=== PATIENT | male | born 1945 | race Caucasian/White ===

== ENCOUNTER → 2016-05-15 | Outpatient (CLI) | payer MEDICARE ==
[~2016-05-15] MED LIST: READI CAT ONE
[2016-05-15 17:41] LABS: Basophils # (auto) 0 uL; Basophils % (auto) 0.4 % (0.0-2.0); Eosinophils # (auto) 0.7 uL; Eosinophils % (auto) 7.5 % (0.0-7.0); Hematocrit 40.4 % (41.0-53.0); Hemoglobin 12.8 g/dL (13.5-17.5); Lymphocytes # (auto) 2.3 uL; Lymphocytes % (auto) 24.2 % (10.0-50.0); Mean Corpuscular Hemoglobin 28.5 pg (28.0-32.0); Mean Corpuscular Hgb Conc. 31.8 g/dL (32.0-36.0); Mean Corpuscular Volume 89.8 fL (80.0-100.0); Mean Platelet Volume 8.4 fL (7.4-10.4); Monocytes # (auto) 0.5 uL; Monocytes % (auto) 5.3 % (0.0-12.0); Neutrophils # (auto) 5.8 uL; Neutrophils % (auto) 62.6 % (37.0-80.0); Platelet Count (auto) 362 10^3/uL (140-450); Red Cell Distribution Width 15.5 % (11.6-16.0); White Blood Cell 9.3 10^3/uL (4.4-10.8)
[2016-05-15 18:13] LABS: BUN/Creatinine Ratio 16.7; Bilirubin, Total 0.3 mg/dL (0.2-1.0); Potassium 4.2 mmol/L (3.5-5.1); Total Protein 7.6 g/dL (6.4-8.2)
== END | disposition home or self-care (01) ==
LOC: Rad HDHVI 12:17
PROVIDERS: ATTEND Internal Medicine Cardiovascular Disease
DX: K80.80 Other cholelithiasis without obstruction (principal); I10 Essential (primary) hypertension; E11.9 Type 2 diabetes mellitus without complications; D64.9 Anemia, unspecified; K44.9 Diaphragmatic hernia without obstruction or gangrene; K80.20 Calculus of gallbladder without cholecystitis without obstruction
CPT/HCPCS: 36415; 74176; 80053; 83036; 85025

== ENCOUNTER → 2016-08-28 | Outpatient (CLI) | payer MEDICARE ==
[2016-08-28 14:16] LABS: Albumin 4.1 g/dL (3.4-5.0); BUN/Creatinine Ratio 6.5; Bilirubin, Total 0.3 mg/dL (0.2-1.0); Calcium 9.7 mg/dL (8.5-10.1); Potassium 4.7 mmol/L (3.5-5.1); Total Protein 8.3 g/dL (6.4-8.2)
== END | disposition home or self-care (01) ==
LOC: LAB 10:10
PROVIDERS: ATTEND Internal Medicine Cardiovascular Disease
DX: I10 Essential (primary) hypertension (principal); E78.00 Pure hypercholesterolemia, unspecified; E11.9 Type 2 diabetes mellitus without complications; D51.9 Vitamin B12 deficiency anemia, unspecified
CPT/HCPCS: 36415; 80053; 80061; 82043; 82607; 83036

== ENCOUNTER → 2016-10-24 | Outpatient (CLI) | payer MEDICARE ==
[2016-10-24 12:59] LABS: Albumin 3.9 g/dL (3.4-5.0); BUN/Creatinine Ratio 12.8; Bilirubin, Total 0.3 mg/dL (0.2-1.0); Potassium 4.2 mmol/L (3.5-5.1); Total Protein 7.2 g/dL (6.4-8.2)
[2016-10-24 13:12] LABS: Urine Bilirubin Negative (Negative); Urine Blood Negative /uL (Negative); Urine Color Yellow (Yellow); Urine Glucose Normal (Normal); Urine Ketone Negative (Negative); Urine Nitrite Negative (Negative); Urine Urobilinogen Normal (Negative); Urine pH 5.5 (5.0-8.0)
== END | disposition home or self-care (01) ==
LOC: LAB 08:56
PROVIDERS: ATTEND Internal Medicine Cardiovascular Disease
DX: E78.00 Pure hypercholesterolemia, unspecified (principal); I10 Essential (primary) hypertension; E11.9 Type 2 diabetes mellitus without complications; N39.0 Urinary tract infection, site not specified
CPT/HCPCS: 36415; 80053; 80061; 81003; 83036

== ENCOUNTER → 2016-10-31 | Outpatient (CLI) | payer MEDICARE | END | disposition home or self-care (01) | LOC: LAB 12:27 | PROVIDERS: ATTEND Internal Medicine Cardiovascular Disease | DX: E11.9 Type 2 diabetes mellitus without complications (principal) ==

== ENCOUNTER → 2017-03-05 | Outpatient (CLI) | payer MEDICARE ==
[~2017-03-05] MED LIST changes: +GLIP10TA82 PO; +METF-370 PO; -READI CAT ONE; +ROSU20TA14 PO; +SITA100T7 PO
== END | disposition home or self-care (01) ==
LOC: Rad HDHVI 12:42
PROVIDERS: ATTEND Internal Medicine Cardiovascular Disease
DX: I70.0 Atherosclerosis of aorta (principal); I31.3 Pericardial effusion (noninflammatory); I08.0 Rheumatic disorders of both mitral and aortic valves; I49.8 Other specified cardiac arrhythmias
CPT/HCPCS: 93306

== ENCOUNTER 2017-07-04 17:12 | Inpatient (IN) | payer MEDICARE ==
[~2017-07-04] VITALS: Ht 203.2 cm; Wt 94.6 kg
[2017-07-04] MEDS ORDERED: PROMETHAZINE HCL 25 MG/ML 1ML IV PRN (17:45)
[2017-07-04] MEDS ORDERED: KETOROLAC TROMETH 30 MG/ML 1ML VIAL IV ONE (17:45)
[2017-07-04 19:12] LABS: Eosinophils # (auto) 0 uL; Lymphocytes # (auto) 0.5 uL
[2017-07-04 19:13] LABS: Basophils % (auto) 0.3 % (0.0-2.0)
[2017-07-04 19:32] LABS: Eosinophils % (auto) 0.1 % (0.0-7.0); Lymphocytes % (auto) 2.5 % (10.0-50.0); Monocytes % (auto) 1.8 % (0.0-12.0); Neutrophils # (auto) 19.6 uL; Neutrophils % (auto) 94.8 % (37.0-80.0); Nucleated Red Blood Cells % 0.1 %; White Blood Cell 20.7 10^3/uL (4.4-10.8)
[2017-07-04 19:33] LABS: Basophils # (auto) 0.2 uL; Hematocrit 40.8 % (41.0-53.0); Hemoglobin 13.2 g/dL (13.5-17.5); Mean Corpuscular Hemoglobin 29.7 pg (28.0-32.0); Mean Corpuscular Hgb Conc. 32.3 g/dL (32.0-36.0); Monocytes # (auto) 0.4 uL; Red Blood Cells 4.43 10^6/uL (4.5-5.90); Red Cell Distribution Width 13.6 % (11.8-14.3)
[2017-07-04 19:34] LABS: Platelet Count (auto) 521 10^3/uL (140-450)
[2017-07-04 19:46] LABS: Albumin 3.4 g/dL (3.4-5.0); BUN/Creatinine Ratio 6.5; Bilirubin, Total 1.9 mg/dL (0.2-1.0); Calcium 9.2 mg/dL (8.5-10.1); Magnesium 1.9 mg/dL (1.6-2.6); Potassium 4.3 mmol/L (3.5-5.1); Total Protein 8.2 g/dL (6.4-8.2)
[2017-07-04] MEDS ORDERED: ONDANSETRON HCL 4 MG/2 ML VIAL IV ONE (21:15)
[2017-07-04] MEDS ORDERED: MORPHINE SULFATE 4 MG/ML SYR/VIAL IV ONE (21:15)
[2017-07-04] MEDS ORDERED: cefTRIAXone 1GM/10ml IVPUSH 10 ML IV ONE (21:15)
[2017-07-04 21:47] LABS: Lactic Acid w/Reflex 4.9 mmol/L (0.4-2.0)
[2017-07-05] VITALS (30 sets, daily range): BP systolic 49–136; BP diastolic 24–98
[2017-07-05] MEDS ORDERED: PIPERACILLIN-TAZOB 3.375GM 50 ML IV ONE (00:45)
[2017-07-05] MEDS ORDERED: SODIUM CHLORIDE 0.9% 2,850 ML IV ONE (00:45)
[2017-07-05] MEDS ORDERED: HYDROcodone-ACET 5/325MG TAB PO PRN (03:00)
[2017-07-05] MEDS ORDERED: MORPHINE SULFATE 4 MG/ML SYR/VIAL IV PRN ×2 (03:00)
[2017-07-05] MEDS ORDERED: SODIUM CHLORIDE 0.9% 1,000 ML IV SCH (03:00)
[2017-07-05] MEDS ORDERED: ACETAMINOPHEN 325 MG TAB PO PRN (03:00)
[2017-07-05] MEDS ORDERED: NITROGLYCERIN 0.4 MG SL TAB SL PRN (03:00)
[2017-07-05] MEDS ORDERED: ONDANSETRON HCL 4 MG/2 ML VIAL IV PRN (03:00)
[2017-07-05] MEDS ORDERED: VANCOMYCIN PER PHARMACY 0 MG IV SCH (03:00)
[2017-07-05] MEDS ORDERED: SODIUM CHLORIDE 0.9% 500 ML IV ONE ×2 (03:00→17:00)
[2017-07-05] MEDS ORDERED: DEXTROSE (50%) 50ML SYRG IV PRN (03:00)
[2017-07-05] MEDS ORDERED: NOREPINEPHRINE 8 MG/250ML KIT 250 ML IV ONE (03:39)
[2017-07-05] MEDS: NOREPINEPHRINE 8 MG/250ML KIT 250 ML IV SCH (03:50)
[2017-07-05] MEDS ORDERED: VANCOMYCIN 1GM/250ML 250 ML IV ONE (04:00)
[2017-07-05 04:13] LABS: Urine WBC None Seen /hpf (0 - 3)
[2017-07-05 04:19] LABS: Urine Bacteria NONE SEEN /hpf (None Seen); Urine Blood Negative /uL (Negative); Urine Specific Gravity 1.006 (1.001-1.035)
[2017-07-05] MEDS: metroNIDAZOLE 500MG/100ML 100 ML IV SCH ×3 (05:33→22:41)
[2017-07-05] MEDS: InsuLIN REG 1unit/0.01ml Soln (100units/ml) SC SCH ×3 (05:38→18:28)
[2017-07-05] MEDS: ACCU-CHEK COMFORT CURVE STRIP VI SCH ×3 (05:38→18:28)
[2017-07-05] MEDS: PIPERACILLIN-TAZOB 3.375GM 50 ML IV SCH ×3 (06:07→18:28)
[2017-07-05 07:07] LABS: Albumin 2.5 g/dL (3.4-5.0); BUN/Creatinine Ratio 7.5; Calcium 7.5 mg/dL (8.5-10.1); Potassium 3.9 mmol/L (3.5-5.1)
[2017-07-05 07:09] LABS: Total Protein 6.2 g/dL (6.4-8.2)
[2017-07-05] MEDS: PANTOPRAZOLE 40 MG/10 ML VIAL IV SCH (10:00)
[2017-07-05] MEDS: ENOXAPARIN SOD 40 MG/0.4 ML SYRINGE SC SCH (10:00)
[2017-07-05 10:09] LABS: INR 1.07 (0.9-1.15); Partial Thromboplastin Time 26.1 sec (22.64-33.71); Prothrombin Time 11.7 sec (9.37-12.3)
[2017-07-05] MEDS ORDERED: fentaNYL CITRATE 100 MCG/2 ML VL ONE ×2 (12:29→16:48)
[2017-07-05] MEDS ORDERED: MIDAZOLAM HCL 1MG/1ML-2 ML VIAL ONE ×2 (12:29→15:10)
[2017-07-05] MEDS ORDERED: PROPOFOL 10 MG/ML 20 ML IV ONE (12:30)
[2017-07-05] MEDS ORDERED: ROCURONIUM 10MG/ML 10ML VIAL IV ONE (12:30)
[2017-07-05] MEDS ORDERED: NEOSTIGMINE 1 MG/ML INJ (10mg/10ML VIAL) IV ONE (13:32)
[2017-07-05] MEDS ORDERED: GLYCOPYRROLATE 0.2 MG/ML 1ML VIAL IV ONE (13:32)
[2017-07-05] MEDS ORDERED: SODIUM BICARBONATE 8.4 % INJ 50ML VIAL IV ONE (14:58)
[2017-07-05] MEDS: MIDAZOLAM HCL 1MG/1ML-2 ML VIAL IV PRN ×3 (15:15→16:15)
[2017-07-05] MEDS ORDERED: VASOPRESSIN 50 UNITS in D5W 5% 247.5 ML IV SCH (15:15)
[2017-07-05] MEDS ORDERED: ALBUMIN 25% 50 ML IV ONE (16:11)
[2017-07-05] MEDS ORDERED: fentaNYL CITRATE 100 MCG/2 ML VL IV ONE (16:30)
[2017-07-05] MEDS ORDERED: fentaNYL CITRATE 100 MCG/2 ML VL IM ONE (16:45)
[2017-07-05] MEDS: VANCOMYCIN 1GM/250ML 250 ML IV SCH (18:28)
[2017-07-05] MEDS: MIDAZOLAM DRIP 50 mg/50mL 50 ML IV SCH ×2 (18:37→22:41)
[2017-07-05] MEDS: PHENYLEPHRINE INJ 20 MG in SODIUM CHL 0.9% 250 ML IV SCH (18:38)
[2017-07-05 19:10] LABS: Basophils # (auto) 0 uL; Eosinophils # (auto) 0 uL; Hematocrit 16.8 % (41.0-53.0); Lymphocytes # (auto) 0.7 uL; Platelet Count (auto) 279 10^3/uL (140-450)
[2017-07-05 19:11] LABS: Basophils % (auto) 0.1 % (0.0-2.0); Lymphocytes % (auto) 3.1 % (10.0-50.0); Mean Corpuscular Hemoglobin 30.1 pg (28.0-32.0); Mean Corpuscular Hgb Conc. 32.6 g/dL (32.0-36.0); Mean Corpuscular Volume 92.3 fL (80.0-100.0); Monocytes % (auto) 4.4 % (0.0-12.0); Neutrophils # (auto) 20.4 uL; Neutrophils % (auto) 92.4 % (37.0-80.0); Red Blood Cells 1.82 10^6/uL (4.5-5.90); Red Cell Distribution Width 13.9 % (11.8-14.3)
[2017-07-05 19:21] LABS: Hemoglobin 5.5 g/dL (13.5-17.5)
[2017-07-05] MEDS: SODIUM CHLORIDE 0.9% 1,000 ML IV SCH ×2 (19:30→23:25)
[2017-07-06] VITALS (109 sets, daily range): BP systolic 86–163; BP diastolic 44–98
[2017-07-06] MEDS: PHENYLEPHRINE INJ 20 MG in SODIUM CHL 0.9% 250 ML IV SCH ×2 (00:14→10:55)
[2017-07-06] MEDS: PIPERACILLIN-TAZOB 3.375GM 50 ML IV SCH ×4 (00:37→18:00)
[2017-07-06] MEDS: MORPHINE SULFATE 4 MG/ML SYR/VIAL IV PRN ×2 (01:11→11:35)
[2017-07-06] MEDS: InsuLIN REG 1unit/0.01ml Soln (100units/ml) SC SCH ×4 (01:22→18:00)
[2017-07-06] MEDS ORDERED: MIDAZOLAM DRIP 50 mg/50mL 50 ML IV ONE ×3 (03:08→11:24)
[2017-07-06] MEDS: NOREPINEPHRINE 8 MG/250ML KIT 250 ML IV SCH ×2 (03:37→19:22)
[2017-07-06 03:38] LABS: Eosinophils # (auto) 0 uL; Nucleated Red Blood Cells % 0.1 %
[2017-07-06 03:40] LABS: Basophils # (auto) 0.1 uL; Basophils % (auto) 0.4 % (0.0-2.0); Eosinophils % (auto) 0.1 % (0.0-7.0); Hematocrit 23.6 % (41.0-53.0); Lymphocytes # (auto) 0.9 uL; Mean Corpuscular Hemoglobin 30.4 pg (28.0-32.0); Mean Corpuscular Hgb Conc. 33.9 g/dL (32.0-36.0); Mean Corpuscular Volume 89.7 fL (80.0-100.0); Monocytes # (auto) 0.9 uL; Monocytes % (auto) 5.7 % (0.0-12.0); Neutrophils # (auto) 13.4 uL; Neutrophils % (auto) 87.8 % (37.0-80.0); Platelet Count (auto) 258 10^3/uL (140-450); Red Blood Cells 2.63 10^6/uL (4.5-5.90); White Blood Cell 15.3 10^3/uL (4.4-10.8)
[2017-07-06 04:04] LABS: BUN/Creatinine Ratio 9.8; Calcium 6.3 mg/dL (8.5-10.1); Potassium 4.1 mmol/L (3.5-5.1)
[2017-07-06 04:08] LABS: Bilirubin, Total 1.6 mg/dL (0.2-1.0); Total Protein 4.6 g/dL (6.4-8.2)
[2017-07-06] MEDS ORDERED: VANCOMYCIN 1GM/250ML 250 ML IV ONE (04:10)
[2017-07-06] MEDS: VANCOMYCIN 1GM/250ML 250 ML IV SCH ×2 (05:00→17:00)
[2017-07-06] MEDS: metroNIDAZOLE 500MG/100ML 100 ML IV SCH ×3 (06:04→22:00)
[2017-07-06] MEDS: ACCU-CHEK COMFORT CURVE STRIP VI SCH ×4 (06:14→18:00)
[2017-07-06] MEDS: SODIUM CHLORIDE 0.9% 1,000 ML IV SCH ×3 (07:16→19:01)
[2017-07-06] MEDS ORDERED: ENOXAPARIN SOD 40 MG/0.4 ML SYRINGE SC ONE (07:54)
[2017-07-06] MEDS ORDERED: PANTOPRAZOLE 40 MG/10 ML VIAL IV ONE (07:54)
[2017-07-06] MEDS: MIDAZOLAM DRIP 50 mg/50mL 50 ML IV SCH ×2 (08:00→11:39)
[2017-07-06] MEDS ORDERED: FUROSEMIDE 20 MG/2 ML VIAL IV ONE (11:00)
[2017-07-06] MEDS ORDERED: ALBUMIN 25% 100 ML IV ONE (11:00)
[2017-07-06] MEDS: ENOXAPARIN SOD 40 MG/0.4 ML SYRINGE SC SCH (11:14)
[2017-07-06] MEDS: PANTOPRAZOLE 40 MG/10 ML VIAL IV SCH (11:14)
[2017-07-06] MEDS ORDERED: InsuLIN REG 1unit/0.01ml Soln (100units/ml) ONE (11:41)
[2017-07-06 14:10] LABS: Hepatitis B Surface Antibody Negative
[2017-07-06 14:19] LABS: Hepatitis B Surface Antigen Negative (Negative)
[2017-07-06 14:47] LABS: Hepatitis A Total Antibody Negative; Hepatitis C Antibody Negative (Negative)
[2017-07-06 14:48] LABS: Hepatitis B Core Total AB Negative
[2017-07-06 17:04] LABS: Lactic Acid w/Reflex 2.1 mmol/L (0.4-2.0)
[2017-07-07] VITALS (106 sets, daily range): BP systolic 90–148; BP diastolic 41–83
[2017-07-07] MEDS: PIPERACILLIN-TAZOB 3.375GM 50 ML IV SCH ×3 (00:09→12:00)
[2017-07-07] MEDS: SODIUM CHLORIDE 0.9% 1,000 ML IV SCH ×3 (02:05→15:25)
[2017-07-07 04:35] LABS: Basophils # (auto) 0 uL; Eosinophils # (auto) 0 uL
[2017-07-07 04:36] LABS: Basophils % (auto) 0.1 % (0.0-2.0); Eosinophils % (auto) 0.2 % (0.0-7.0); Hematocrit 20.7 % (41.0-53.0); Lymphocytes # (auto) 1.3 uL; Lymphocytes % (auto) 7.5 % (10.0-50.0); Mean Corpuscular Hemoglobin 30.6 pg (28.0-32.0); Mean Corpuscular Hgb Conc. 33.9 g/dL (32.0-36.0); Mean Corpuscular Volume 90.2 fL (80.0-100.0); Monocytes % (auto) 5.7 % (0.0-12.0); Neutrophils # (auto) 14.8 uL; Neutrophils % (auto) 86.5 % (37.0-80.0); Platelet Count (auto) 212 10^3/uL (140-450); Red Blood Cells 2.29 10^6/uL (4.5-5.90); Red Cell Distribution Width 14.5 % (11.8-14.3); White Blood Cell 17.1 10^3/uL (4.4-10.8)
[2017-07-07 04:55] LABS: BUN/Creatinine Ratio 7.7; Calcium 6.3 mg/dL (8.5-10.1); Magnesium 1.6 mg/dL (1.6-2.6); Potassium 3.2 mmol/L (3.5-5.1)
[2017-07-07 04:56] LABS: Cholesterol < 50 mg/dL (< 200); HDL Cholesterol 14 mg/dL (40-59); LDL Cholesterol 20 mg/dL (< 100); Triglycerides 144 mg/dL (< 150)
[2017-07-07 04:58] LABS: Bilirubin, Total 0.8 mg/dL (0.2-1.0); Total Protein 4.7 g/dL (6.4-8.2)
[2017-07-07] MEDS: VANCOMYCIN 1GM/250ML 250 ML IV SCH (05:00)
[2017-07-07] MEDS: ACCU-CHEK COMFORT CURVE STRIP VI SCH ×4 (06:19→18:24)
[2017-07-07] MEDS: metroNIDAZOLE 500MG/100ML 100 ML IV SCH ×3 (06:19→22:00)
[2017-07-07] MEDS: InsuLIN REG 1unit/0.01ml Soln (100units/ml) SC SCH ×4 (06:19→18:00)
[2017-07-07] MEDS: ENOXAPARIN SOD 40 MG/0.4 ML SYRINGE SC SCH (10:19)
[2017-07-07] MEDS: PANTOPRAZOLE 40 MG/10 ML VIAL IV SCH (10:19)
[2017-07-07] MEDS: MIDAZOLAM DRIP 50 mg/50mL 50 ML IV SCH ×2 (13:20→18:48)
[2017-07-07] MEDS: NOREPINEPHRINE 8 MG/250ML KIT 250 ML IV SCH (13:21)
[2017-07-07] MEDS ORDERED: ACETAMINOPHEN 650 MG RECT SUPP PR PRN (16:45)
[2017-07-07] MEDS ORDERED: VANCOMYCIN 1,250 MG in D5W 5% 250 ML IV SCH (17:00)
[2017-07-07] MEDS: SOD CHL 0.45% WITH 20MEQ KCL 1,000 ML IV SCH (17:46)
[2017-07-07] MEDS: LEVOFLOXACIN 750MG 150 ML IV SCH (17:46)
[2017-07-07 22:38] LABS: Hematocrit 24.9 % (41.0-53.0); Hemoglobin 8.5 g/dL (13.5-17.5)
[2017-07-08] VITALS (104 sets, daily range): BP systolic 93–137; BP diastolic 35–89
[2017-07-08] MEDS: MIDAZOLAM DRIP 50 mg/50mL 50 ML IV SCH ×5 (00:45→23:15)
[2017-07-08] MEDS: InsuLIN REG 1unit/0.01ml Soln (100units/ml) SC SCH ×4 (00:58→18:00)
[2017-07-08] MEDS ORDERED: ALBUTEROL SULF 2.5 MG/0.5ML(0.5%) NEB SOLN ONE (01:35)
[2017-07-08 04:01] LABS: Basophils # (auto) 0.1 uL; Basophils % (auto) 0.5 % (0.0-2.0); Eosinophils # (auto) 0.3 uL; Hematocrit 24.8 % (41.0-53.0); Hemoglobin 8.5 g/dL (13.5-17.5); Lymphocytes # (auto) 1.7 uL; Lymphocytes % (auto) 11.2 % (10.0-50.0); Mean Corpuscular Hemoglobin 30.5 pg (28.0-32.0); Mean Corpuscular Hgb Conc. 34.4 g/dL (32.0-36.0); Mean Corpuscular Volume 88.5 fL (80.0-100.0); Monocytes # (auto) 0.9 uL; Monocytes % (auto) 6.1 % (0.0-12.0); Neutrophils # (auto) 11.9 uL; Neutrophils % (auto) 80.2 % (37.0-80.0); Nucleated Red Blood Cells % 0.1 %; Platelet Count (auto) 204 10^3/uL (140-450); Red Cell Distribution Width 14.3 % (11.8-14.3); White Blood Cell 14.8 10^3/uL (4.4-10.8)
[2017-07-08 04:25] LABS: Albumin 1.9 g/dL (3.4-5.0); BUN/Creatinine Ratio 3.7; Bilirubin, Total 0.5 mg/dL (0.2-1.0); Calcium 6.7 mg/dL (8.5-10.1)
[2017-07-08] MEDS: ALBUTEROL SULF 2.5 MG/0.5ML(0.5%) NEB SOLN NEB SCH ×3 (06:11→18:00)
[2017-07-08] MEDS: ACCU-CHEK COMFORT CURVE STRIP VI SCH ×4 (06:25→18:00)
[2017-07-08] MEDS: metroNIDAZOLE 500MG/100ML 100 ML IV SCH ×3 (06:26→22:04)
[2017-07-08] MEDS: SOD CHL 0.45% WITH 20MEQ KCL 1,000 ML IV SCH ×2 (07:00→20:03)
[2017-07-08] MEDS: NOREPINEPHRINE 8 MG/250ML KIT 250 ML IV SCH (08:15)
[2017-07-08] MEDS ORDERED: FUROSEMIDE 40 MG/4 ML VIAL IV ONE (08:30)
[2017-07-08] MEDS: POTASSIUM CHL 20MEQ/100ML 100 ML IV SCH ×2 (08:37→09:59)
[2017-07-08] MEDS: PANTOPRAZOLE 40 MG/10 ML VIAL IV SCH (09:58)
[2017-07-08] MEDS: ENOXAPARIN SOD 40 MG/0.4 ML SYRINGE SC SCH (09:59)
[2017-07-08] MEDS: LEVOFLOXACIN 750MG 150 ML IV SCH (17:52)
[2017-07-08] MEDS: POTASSIUM CHL 10% (20 MEQ/15ML) 15ml ORAL SOLN GT SCH (22:04)
[2017-07-09] VITALS (107 sets, daily range): BP systolic 83–142; BP diastolic 41–83
[2017-07-09 03:49] LABS: Basophils # (auto) 0.1 uL; Basophils % (auto) 0.7 % (0.0-2.0); Eosinophils # (auto) 0.6 uL; Hematocrit 25.1 % (41.0-53.0); Hemoglobin 8.5 g/dL (13.5-17.5); Lymphocytes # (auto) 1.3 uL; Lymphocytes % (auto) 11.1 % (10.0-50.0); Mean Corpuscular Hemoglobin 30.6 pg (28.0-32.0); Mean Corpuscular Volume 90.1 fL (80.0-100.0); Monocytes # (auto) 0.9 uL; Neutrophils # (auto) 9.2 uL; Neutrophils % (auto) 76.2 % (37.0-80.0); Nucleated Red Blood Cells % 0.7 %; Platelet Count (auto) 223 10^3/uL (140-450); Red Blood Cells 2.78 10^6/uL (4.5-5.90); Red Cell Distribution Width 14.3 % (11.8-14.3); White Blood Cell 12.1 10^3/uL (4.4-10.8)
[2017-07-09 04:11] LABS: Potassium 3.3 mmol/L (3.5-5.1)
[2017-07-09 04:17] LABS: Albumin 1.8 g/dL (3.4-5.0); BUN/Creatinine Ratio 5.9; Calcium 7.1 mg/dL (8.5-10.1)
[2017-07-09 04:19] LABS: Bilirubin, Total 0.5 mg/dL (0.2-1.0); Total Protein 5.1 g/dL (6.4-8.2)
[2017-07-09] MEDS: MIDAZOLAM DRIP 50 mg/50mL 50 ML IV SCH ×4 (04:30→18:43)
[2017-07-09] MEDS: ALBUTEROL SULF 2.5 MG/0.5ML(0.5%) NEB SOLN NEB SCH ×4 (06:00→19:33)
[2017-07-09] MEDS: InsuLIN REG 1unit/0.01ml Soln (100units/ml) SC SCH ×5 (06:00→23:33)
[2017-07-09] MEDS: metroNIDAZOLE 500MG/100ML 100 ML IV SCH ×3 (06:00→21:52)
[2017-07-09] MEDS: ACCU-CHEK COMFORT CURVE STRIP VI SCH ×5 (06:00→23:33)
[2017-07-09] MEDS: SOD CHL 0.45% WITH 20MEQ KCL 1,000 ML IV SCH ×2 (08:09→22:50)
[2017-07-09] MEDS: PANTOPRAZOLE 40 MG/10 ML VIAL IV SCH (09:31)
[2017-07-09] MEDS: ENOXAPARIN SOD 40 MG/0.4 ML SYRINGE SC SCH (09:32)
[2017-07-09] MEDS: POTASSIUM CHL 10% (20 MEQ/15ML) 15ml ORAL SOLN GT SCH ×2 (09:32→21:51)
[2017-07-09] MEDS ORDERED: SODIUM BICARBONATE 8.4% INJ 50ML SYRINGE IV ONE (13:12)
[2017-07-09] MEDS: NOREPINEPHRINE 8 MG/250ML KIT 250 ML IV SCH (14:21)
[2017-07-09] MEDS: MORPHINE SULFATE 4 MG/ML SYR/VIAL IV PRN (15:20)
[2017-07-09] MEDS: LEVOFLOXACIN 750MG 150 ML IV SCH (17:24)
[2017-07-10] VITALS (72 sets, daily range): BP systolic 95–158; BP diastolic 52–101
[2017-07-10] MEDS: ALBUTEROL SULF 2.5 MG/0.5ML(0.5%) NEB SOLN NEB SCH ×4 (00:23→18:48)
[2017-07-10] MEDS: MIDAZOLAM DRIP 50 mg/50mL 50 ML IV SCH (00:40)
[2017-07-10 03:47] LABS: Basophils # (auto) 0.1 uL; Eosinophils # (auto) 0.5 uL; Hemoglobin 8.1 g/dL (13.5-17.5); Monocytes # (auto) 0.8 uL; Platelet Count (auto) 248 10^3/uL (140-450); White Blood Cell 11.5 10^3/uL (4.4-10.8)
[2017-07-10 03:49] LABS: Basophils % (auto) 0.8 % (0.0-2.0); Eosinophils % (auto) 3.9 % (0.0-7.0); Hematocrit 24.3 % (41.0-53.0); Lymphocytes # (auto) 1.4 uL; Lymphocytes % (auto) 12.1 % (10.0-50.0); Mean Corpuscular Hemoglobin 30.2 pg (28.0-32.0); Mean Corpuscular Hgb Conc. 33.2 g/dL (32.0-36.0); Mean Corpuscular Volume 91.1 fL (80.0-100.0); Monocytes % (auto) 6.8 % (0.0-12.0); Neutrophils # (auto) 8.8 uL; Neutrophils % (auto) 76.4 % (37.0-80.0); Nucleated Red Blood Cells % 0.4 %; Red Blood Cells 2.67 10^6/uL (4.5-5.90); Red Cell Distribution Width 13.9 % (11.8-14.3)
[2017-07-10 04:00] LABS: Albumin 1.7 g/dL (3.4-5.0); BUN/Creatinine Ratio 11.3; Calcium 7.1 mg/dL (8.5-10.1); Potassium 3.4 mmol/L (3.5-5.1)
[2017-07-10 04:02] LABS: Bilirubin, Total 0.4 mg/dL (0.2-1.0); Total Protein 4.9 g/dL (6.4-8.2)
[2017-07-10] MEDS: InsuLIN REG 1unit/0.01ml Soln (100units/ml) SC SCH ×3 (06:01→18:30)
[2017-07-10] MEDS: POTASSIUM CHL 10% (20 MEQ/15ML) 15ml ORAL SOLN GT SCH ×3 (06:01→22:00)
[2017-07-10] MEDS: metroNIDAZOLE 500MG/100ML 100 ML IV SCH ×3 (06:01→22:00)
[2017-07-10] MEDS: ACCU-CHEK COMFORT CURVE STRIP VI SCH ×3 (06:02→18:03)
[2017-07-10] MEDS: PANTOPRAZOLE 40 MG/10 ML VIAL IV SCH (10:55)
[2017-07-10] MEDS: ENOXAPARIN SOD 40 MG/0.4 ML SYRINGE SC SCH (10:55)
[2017-07-10] MEDS ORDERED: FUROSEMIDE 20 MG/2 ML VIAL IV ONE (13:15)
[2017-07-10] MEDS: SOD CHL 0.45% WITH 20MEQ KCL 1,000 ML IV SCH (17:30)
[2017-07-10] MEDS ORDERED: FUROSEMIDE 20 MG/2 ML VIAL IV SCH (18:00)
[2017-07-10] MEDS: LEVOFLOXACIN 750MG 150 ML IV SCH (18:00)
[2017-07-10] MEDS: MORPHINE SULFATE 4 MG/ML SYR/VIAL IV PRN (18:02)
[2017-07-10] MEDS: FUROSEMIDE 20 MG/2 ML VIAL IV SCH (20:00)
[2017-07-11] VITALS (34 sets, daily range): BP systolic 114–175; BP diastolic 64–115
[2017-07-11] MEDS: MORPHINE SULFATE 4 MG/ML SYR/VIAL IV PRN ×2 (00:18→17:31)
[2017-07-11] MEDS: ALBUTEROL SULF 2.5 MG/0.5ML(0.5%) NEB SOLN NEB SCH ×4 (00:26→19:00)
[2017-07-11] MEDS: NOREPINEPHRINE 8 MG/250ML KIT 250 ML IV SCH (03:37)
[2017-07-11] MEDS: POTASSIUM CHL 10% (20 MEQ/15ML) 15ml ORAL SOLN GT SCH ×3 (05:45→21:53)
[2017-07-11] MEDS: ACCU-CHEK COMFORT CURVE STRIP VI SCH ×4 (05:46→17:38)
[2017-07-11] MEDS: metroNIDAZOLE 500MG/100ML 100 ML IV SCH ×3 (05:46→21:53)
[2017-07-11] MEDS: InsuLIN REG 1unit/0.01ml Soln (100units/ml) SC SCH ×4 (05:46→17:38)
[2017-07-11] MEDS: FUROSEMIDE 20 MG/2 ML VIAL IV SCH ×2 (08:00→20:06)
[2017-07-11 08:49] LABS: Basophils # (auto) 0.1 uL; Basophils % (auto) 0.5 % (0.0-2.0); Eosinophils # (auto) 0.1 uL; Eosinophils % (auto) 0.8 % (0.0-7.0); Hematocrit 29.3 % (41.0-53.0); Hemoglobin 9.7 g/dL (13.5-17.5); Lymphocytes # (auto) 1.3 uL; Lymphocytes % (auto) 7.9 % (10.0-50.0); Mean Corpuscular Hemoglobin 30.3 pg (28.0-32.0); Mean Corpuscular Hgb Conc. 33.2 g/dL (32.0-36.0); Mean Corpuscular Volume 91.4 fL (80.0-100.0); Monocytes # (auto) 1.1 uL; Monocytes % (auto) 6.7 % (0.0-12.0); Neutrophils # (auto) 13.8 uL; Neutrophils % (auto) 84.1 % (37.0-80.0); Nucleated Red Blood Cells % 0.5 %; Platelet Count (auto) 371 10^3/uL (140-450); Red Blood Cells 3.21 10^6/uL (4.5-5.90); Red Cell Distribution Width 14.4 % (11.8-14.3); White Blood Cell 16.4 10^3/uL (4.4-10.8)
[2017-07-11 09:05] LABS: BUN/Creatinine Ratio 12.5; Potassium 3.3 mmol/L (3.5-5.1)
[2017-07-11] MEDS: ENOXAPARIN SOD 40 MG/0.4 ML SYRINGE SC SCH (10:00)
[2017-07-11] MEDS: PANTOPRAZOLE 40 MG/10 ML VIAL IV SCH (10:00)
[2017-07-11] MEDS ORDERED: ALBUMIN 25% 100 ML IV ONE (11:45)
[2017-07-11] MEDS: NYSTATIN (MOUTH-THROAT) 500,000 UNITS/5 ML SUSP MT SCH ×3 (13:13→21:54)
[2017-07-11] MEDS: SOD CHL 0.45% WITH 20MEQ KCL 1,000 ML IV SCH (13:30)
[2017-07-11] MEDS ORDERED: ACETAMINOPHEN 325 MG TAB PO PRN (14:00)
[2017-07-11] MEDS: LEVOFLOXACIN 750MG 150 ML IV SCH (17:31)
[2017-07-11] MEDS ORDERED: MORPHINE SULFATE 4 MG/ML SYR/VIAL IV PRN (18:30)
[2017-07-11] MEDS: HYDROcodone-ACET 5/325MG TAB PO PRN (20:10)
[2017-07-12] VITALS (12 sets, daily range): BP systolic 100–132; BP diastolic 60–83
[2017-07-12] MEDS: ACCU-CHEK COMFORT CURVE STRIP VI SCH ×4 (00:04→18:09)
[2017-07-12] MEDS: InsuLIN REG 1unit/0.01ml Soln (100units/ml) SC SCH ×4 (00:04→18:09)
[2017-07-12] MEDS: ALBUTEROL SULF 2.5 MG/0.5ML(0.5%) NEB SOLN NEB SCH ×2 (01:37→06:10)
[2017-07-12] MEDS: NYSTATIN (MOUTH-THROAT) 500,000 UNITS/5 ML SUSP MT SCH ×5 (05:30→22:00)
[2017-07-12] MEDS: POTASSIUM CHL 10% (20 MEQ/15ML) 15ml ORAL SOLN GT SCH (05:31)
[2017-07-12] MEDS: metroNIDAZOLE 500MG/100ML 100 ML IV SCH ×3 (05:31→21:54)
[2017-07-12 05:49] LABS: Basophils # (auto) 0 uL; Basophils % (auto) 0.1 % (0.0-2.0); Eosinophils # (auto) 0.2 uL; Eosinophils % (auto) 1.5 % (0.0-7.0); Hematocrit 26.3 % (41.0-53.0); Hemoglobin 8.8 g/dL (13.5-17.5); Lymphocytes % (auto) 7.8 % (10.0-50.0); Mean Corpuscular Hemoglobin 30.8 pg (28.0-32.0); Mean Corpuscular Hgb Conc. 33.5 g/dL (32.0-36.0); Mean Corpuscular Volume 91.8 fL (80.0-100.0); Monocytes # (auto) 0.9 uL; Monocytes % (auto) 6.6 % (0.0-12.0); Neutrophils # (auto) 10.9 uL; Nucleated Red Blood Cells % 0.1 %; Platelet Count (auto) 374 10^3/uL (140-450); Red Blood Cells 2.86 10^6/uL (4.5-5.90); Red Cell Distribution Width 14.7 % (11.8-14.3)
[2017-07-12 06:11] LABS: BUN/Creatinine Ratio 12.8; Calcium 8.2 mg/dL (8.5-10.1); Potassium 3.1 mmol/L (3.5-5.1)
[2017-07-12] MEDS: PANTOPRAZOLE 40 MG/10 ML VIAL IV SCH (09:21)
[2017-07-12] MEDS: ENOXAPARIN SOD 40 MG/0.4 ML SYRINGE SC SCH (09:32)
[2017-07-12] MEDS: FUROSEMIDE 20 MG/2 ML VIAL IV SCH (09:32)
[2017-07-12] MEDS ORDERED: LOPERAMIDE HCL 2 MG CAP PO ONE (10:30)
[2017-07-12] MEDS ORDERED: POTASSIUM CHL 20 Meq TABLET PO ONE (10:30)
[2017-07-12] MEDS ORDERED: LORazepam 0.5 MG TAB PO PRN (10:30)
[2017-07-12] MEDS: ALBUTEROL SULF 2.5 MG/0.5ML(0.5%) NEB SOLN NEB PRN (11:36)
[2017-07-12] MEDS: Boost Glucose Control 8 Ounces PO SCH (18:08)
[2017-07-12] MEDS: LEVOFLOXACIN 750MG 150 ML IV SCH (18:08)
[2017-07-12] MEDS: TEMAZEPAM 15 MG CAP PO PRN (21:56)
[2017-07-13] MEDS: ACCU-CHEK COMFORT CURVE STRIP VI SCH ×4 (00:22→17:44)
[2017-07-13] MEDS: InsuLIN REG 1unit/0.01ml Soln (100units/ml) SC SCH ×4 (00:22→18:02)
[2017-07-13 05:00] VITALS: BP 103/59
[2017-07-13 05:06] LABS: Basophils # (auto) 0 uL; Basophils % (auto) 0.3 % (0.0-2.0); Eosinophils # (auto) 0.1 uL; Eosinophils % (auto) 0.7 % (0.0-7.0); Hematocrit 31.2 % (41.0-53.0); Hemoglobin 10.3 g/dL (13.5-17.5); Lymphocytes # (auto) 0.8 uL; Lymphocytes % (auto) 5.7 % (10.0-50.0); Mean Corpuscular Hemoglobin 30.1 pg (28.0-32.0); Mean Corpuscular Hgb Conc. 33.1 g/dL (32.0-36.0); Monocytes % (auto) 6.7 % (0.0-12.0); Neutrophils # (auto) 12.6 uL; Neutrophils % (auto) 86.6 % (37.0-80.0); Nucleated Red Blood Cells % 0.1 %; Platelet Count (auto) 431 10^3/uL (140-450); Red Blood Cells 3.43 10^6/uL (4.5-5.90); Red Cell Distribution Width 14.9 % (11.8-14.3); White Blood Cell 14.5 10^3/uL (4.4-10.8)
[2017-07-13 05:25] LABS: BUN/Creatinine Ratio 10.4; Potassium 3.2 mmol/L (3.5-5.1)
[2017-07-13] MEDS: metroNIDAZOLE 500MG/100ML 100 ML IV SCH ×3 (05:35→22:08)
[2017-07-13] MEDS: NYSTATIN (MOUTH-THROAT) 500,000 UNITS/5 ML SUSP MT SCH ×8 (05:36→22:00)
[2017-07-13] MEDS: Boost Glucose Control 8 Ounces PO SCH ×2 (08:00→18:02)
[2017-07-13 08:32] VITALS: BP 154/91
[2017-07-13] MEDS ORDERED: FUROSEMIDE 20 MG/2 ML VIAL IV SCH (10:00)
[2017-07-13] MEDS: POTASSIUM CHL 10% (20 MEQ/15ML) 15ml ORAL SOLN PO SCH (10:08)
[2017-07-13 13:16] VITALS: BP 130/82
[2017-07-13 16:36] VITALS: BP 133/80
[2017-07-13] MEDS: LEVOFLOXACIN 750MG 150 ML IV SCH (17:44)
[2017-07-13 22:00] VITALS: BP 134/76
[2017-07-13] MEDS: TEMAZEPAM 15 MG CAP PO PRN (22:08)
[2017-07-13] MEDS ORDERED: HALOPERIDOL 1 MG TAB PO PRN (23:15)
[2017-07-14 05:00] VITALS: BP 131/80
[2017-07-14] MEDS: metroNIDAZOLE 500MG/100ML 100 ML IV SCH ×3 (05:56→21:52)
[2017-07-14] MEDS: metFORMIN HYDROCHLORIDE 500 MG TAB PO SCH ×2 (06:37→17:26)
[2017-07-14] MEDS: glipiZIDE 5 MG TAB PO SCH ×2 (06:37→17:27)
[2017-07-14] MEDS: InsuLIN REG 1unit/0.01ml Soln (100units/ml) SC SCH ×2 (06:38→17:00)
[2017-07-14] MEDS: ACCU-CHEK COMFORT CURVE STRIP VI SCH ×2 (06:38→17:26)
[2017-07-14] MEDS: HYDROcodone-ACET 5/325MG TAB PO PRN ×3 (06:39→20:28)
[2017-07-14 08:00] VITALS: BP 137/77
[2017-07-14] MEDS: Boost Glucose Control 8 Ounces PO SCH ×2 (08:00→17:29)
[2017-07-14 08:15] LABS: Basophils # (auto) 0 uL; Eosinophils # (auto) 0.1 uL; Eosinophils % (auto) 0.9 % (0.0-7.0); Hematocrit 32.4 % (41.0-53.0); Hemoglobin 10.6 g/dL (13.5-17.5); Lymphocytes # (auto) 0.9 uL; Lymphocytes % (auto) 6.1 % (10.0-50.0); Mean Corpuscular Hemoglobin 29.9 pg (28.0-32.0); Mean Corpuscular Hgb Conc. 32.8 g/dL (32.0-36.0); Mean Corpuscular Volume 91.1 fL (80.0-100.0); Monocytes # (auto) 0.9 uL; Monocytes % (auto) 6.2 % (0.0-12.0); Neutrophils # (auto) 12.8 uL; Neutrophils % (auto) 86.8 % (37.0-80.0); Platelet Count (auto) 416 10^3/uL (140-450); Red Blood Cells 3.56 10^6/uL (4.5-5.90); Red Cell Distribution Width 14.9 % (11.8-14.3); White Blood Cell 14.7 10^3/uL (4.4-10.8)
[2017-07-14 08:29] LABS: Calcium 7.7 mg/dL (8.5-10.1)
[2017-07-14 08:34] LABS: BUN/Creatinine Ratio 15.9
[2017-07-14 08:37] LABS: Potassium 2.6 mmol/L (3.5-5.1)
[2017-07-14] MEDS: POTASSIUM CHL 10% (20 MEQ/15ML) 15ml ORAL SOLN PO SCH (09:06)
[2017-07-14] MEDS: FUROSEMIDE 40 MG TAB PO SCH (09:06)
[2017-07-14] MEDS: POTASSIUM CHL 20MEQ/100ML 100 ML IV SCH ×2 (10:03→12:28)
[2017-07-14] MEDS ORDERED: FLUCONAZOLE 200MG/100ML 100 ML IV ONE (12:30)
[2017-07-14] MEDS: LOPERAMIDE HCL 2 MG CAP PO PRN (12:46)
[2017-07-14 13:00] VITALS: BP 94/53
[2017-07-14 17:14] VITALS: BP 126/66
[2017-07-14] MEDS: LEVOFLOXACIN 750MG 150 ML IV SCH (17:23)
[2017-07-14] MEDS: TEMAZEPAM 15 MG CAP PO PRN (21:53)
[2017-07-14 22:00] VITALS: BP 107/63
[2017-07-15] VITALS (7 sets, daily range): BP systolic 104–130; BP diastolic 53–87
[2017-07-15] MEDS: HYDROcodone-ACET 5/325MG TAB PO PRN ×3 (04:05→23:14)
[2017-07-15 06:01] LABS: Basophils # (auto) 0 uL; Basophils % (auto) 0.2 % (0.0-2.0); Eosinophils # (auto) 0.2 uL; Eosinophils % (auto) 1.2 % (0.0-7.0); Hematocrit 32.8 % (41.0-53.0); Hemoglobin 10.9 g/dL (13.5-17.5); Lymphocytes # (auto) 0.9 uL; Mean Corpuscular Hemoglobin 30.1 pg (28.0-32.0); Mean Corpuscular Hgb Conc. 33.1 g/dL (32.0-36.0); Mean Corpuscular Volume 91.1 fL (80.0-100.0); Monocytes # (auto) 1.1 uL; Monocytes % (auto) 6.9 % (0.0-12.0); Neutrophils # (auto) 13.3 uL; Neutrophils % (auto) 85.7 % (37.0-80.0); Platelet Count (auto) 436 10^3/uL (140-450); Red Cell Distribution Width 15.3 % (11.8-14.3); White Blood Cell 15.6 10^3/uL (4.4-10.8)
[2017-07-15 06:20] LABS: Albumin 2.4 g/dL (3.4-5.0); BUN/Creatinine Ratio 15.6; Calcium 7.7 mg/dL (8.5-10.1)
[2017-07-15 06:23] LABS: Bilirubin, Total 1.6 mg/dL (0.2-1.0); Total Protein 5.9 g/dL (6.4-8.2)
[2017-07-15 06:27] LABS: Potassium 2.8 mmol/L (3.5-5.1)
[2017-07-15] MEDS: metroNIDAZOLE 500MG/100ML 100 ML IV SCH ×3 (06:37→21:59)
[2017-07-15] MEDS: metFORMIN HYDROCHLORIDE 500 MG TAB PO SCH (06:46)
[2017-07-15] MEDS: glipiZIDE 5 MG TAB PO SCH ×2 (06:46→17:46)
[2017-07-15] MEDS: InsuLIN REG 1unit/0.01ml Soln (100units/ml) SC SCH ×2 (06:58→17:16)
[2017-07-15] MEDS ORDERED: POTASSIUM CHL 20 Meq TABLET PO ONE (07:00)
[2017-07-15] MEDS: ACCU-CHEK COMFORT CURVE STRIP VI SCH ×2 (07:01→17:16)
[2017-07-15] MEDS: MAGNESIUM SULFATE 1GM/100ML 100 ML IV SCH ×2 (07:16→09:22)
[2017-07-15] MEDS: Boost Glucose Control 8 Ounces PO SCH ×2 (08:00→17:47)
[2017-07-15] MEDS ORDERED: SODIUM CHLORIDE 0.9% 1,000 ML IV ONE (08:15)
[2017-07-15] MEDS: FLUCONAZOLE 200MG/100ML 100 ML IV SCH (09:22)
[2017-07-15] MEDS: POTASSIUM CHL 10% (20 MEQ/15ML) 15ml ORAL SOLN PO SCH (09:22)
[2017-07-15] MEDS: FUROSEMIDE 40 MG TAB PO SCH (09:24)
[2017-07-15] MEDS: LOPERAMIDE HCL 2 MG CAP PO PRN (09:53)
[2017-07-15] MEDS ORDERED: PANTOPRAZOLE 40 MG TAB PO ONE (12:00)
[2017-07-15] MEDS ORDERED: ALUM & MAG HYDROX-SIMETH LIQ(MAALOX) 30 ML GT PRN (12:00)
[2017-07-15] MEDS ORDERED: ALUM & MAG HYDROX-SIMETH LIQ(MAALOX) 30 ML PO ONE (12:00)
[2017-07-15] MEDS: POTASSIUM CHL 20MEQ/100ML 100 ML IV SCH ×3 (15:29→20:24)
[2017-07-15] MEDS: LEVOFLOXACIN 750MG 150 ML IV SCH (17:46)
[2017-07-15] MEDS: TEMAZEPAM 15 MG CAP PO PRN (22:00)
[2017-07-16 05:00] VITALS: BP 110/56
[2017-07-16] MEDS: HYDROcodone-ACET 5/325MG TAB PO PRN ×2 (05:57→18:35)
[2017-07-16 05:58] LABS: Basophils # (auto) 0.1 uL; Basophils % (auto) 0.4 % (0.0-2.0); Eosinophils # (auto) 0.3 uL; Eosinophils % (auto) 1.9 % (0.0-7.0); Hematocrit 34.3 % (41.0-53.0); Hemoglobin 11.3 g/dL (13.5-17.5); Lymphocytes # (auto) 1.1 uL; Lymphocytes % (auto) 8.2 % (10.0-50.0); Mean Corpuscular Hemoglobin 30.3 pg (28.0-32.0); Mean Corpuscular Volume 91.9 fL (80.0-100.0); Monocytes # (auto) 1.1 uL; Monocytes % (auto) 7.7 % (0.0-12.0); Neutrophils # (auto) 11.5 uL; Neutrophils % (auto) 81.8 % (37.0-80.0); Platelet Count (auto) 429 10^3/uL (140-450); Red Blood Cells 3.73 10^6/uL (4.5-5.90); Red Cell Distribution Width 15.5 % (11.8-14.3)
[2017-07-16 06:21] LABS: Albumin 2.5 g/dL (3.4-5.0); BUN/Creatinine Ratio 8.9; Bilirubin, Total 1.4 mg/dL (0.2-1.0); Calcium 8.1 mg/dL (8.5-10.1); Potassium 3.4 mmol/L (3.5-5.1); Total Protein 6.2 g/dL (6.4-8.2)
[2017-07-16] MEDS: metroNIDAZOLE 500MG/100ML 100 ML IV SCH ×3 (06:39→21:05)
[2017-07-16] MEDS: glipiZIDE 5 MG TAB PO SCH ×2 (06:40→18:37)
[2017-07-16] MEDS: InsuLIN REG 1unit/0.01ml Soln (100units/ml) SC SCH ×2 (06:50→18:39)
[2017-07-16] MEDS: ACCU-CHEK COMFORT CURVE STRIP VI SCH ×2 (07:00→18:34)
[2017-07-16] MEDS: Boost Glucose Control 8 Ounces PO SCH ×2 (08:00→18:00)
[2017-07-16] MEDS: ALBUTEROL SULF 2.5 MG/0.5ML(0.5%) NEB SOLN NEB PRN (08:11)
[2017-07-16 09:00] VITALS: BP 136/78
[2017-07-16] MEDS ORDERED: PANTOPRAZOLE 40 MG TAB PO SCH (10:00)
[2017-07-16] MEDS: FLUCONAZOLE 200MG/100ML 100 ML IV SCH (12:15)
[2017-07-16] MEDS: FUROSEMIDE 40 MG TAB PO SCH (12:16)
[2017-07-16] MEDS: POTASSIUM CHL 10% (20 MEQ/15ML) 15ml ORAL SOLN PO SCH (12:17)
[2017-07-16 13:30] VITALS: BP 118/65
[2017-07-16] MEDS ORDERED: FURO40TA4 PO (13:33)
[2017-07-16] MEDS ORDERED: FLUC200T50 PO (13:33)
[2017-07-16 17:28] VITALS: BP 100/50
[2017-07-16] MEDS: LEVOFLOXACIN 750MG 150 ML IV SCH (18:38)
[2017-07-16] MEDS: TEMAZEPAM 15 MG CAP PO PRN (21:05)
[2017-07-16 22:00] VITALS: BP 129/73
[2017-07-16] MEDS ORDERED: GABAPENTIN 100 MG CAP PO SCH (22:00)
[2017-07-17 05:26] VITALS: BP 121/82
[2017-07-17] MEDS: HYDROcodone-ACET 5/325MG TAB PO PRN (05:31)
[2017-07-17] MEDS: metroNIDAZOLE 500MG/100ML 100 ML IV SCH (05:31)
[2017-07-17] MEDS: glipiZIDE 5 MG TAB PO SCH (06:58)
[2017-07-17] MEDS: ACCU-CHEK COMFORT CURVE STRIP VI SCH (06:59)
[2017-07-17] MEDS: InsuLIN REG 1unit/0.01ml Soln (100units/ml) SC SCH (06:59)
[2017-07-17] MEDS: Boost Glucose Control 8 Ounces PO SCH (08:00)
[2017-07-17 09:02] VITALS: BP 96/56
[2017-07-17] MEDS: FLUCONAZOLE 200MG/100ML 100 ML IV SCH (10:00)
[2017-07-17] MEDS: FUROSEMIDE 40 MG TAB PO SCH (10:00)
[2017-07-17] MEDS: POTASSIUM CHL 10% (20 MEQ/15ML) 15ml ORAL SOLN PO SCH (11:02)
[2017-07-17 11:41] VITALS: BP 96/56
[2017-07-17 13:00] VITALS: BP 126/76
== END 2017-07-17 13:43 | disposition home health service (06) | DRG 853 ==
LOC: ER 17:14 → OVERFLOW 17:15 → ICU WEST 07-05 17:09 → UNDODISIN 07-05 19:33 → TELE-CENTR 07-11 18:02 → CENTRAL 07-15 07:58
PROVIDERS: ADMIT Nurse Practitioner; ATTEND Internal Medicine
PROC: 5A1955Z Respiratory Ventilation, Greater than 96 Consecutive Hours (ICD-10-PCS; 2017-07-05)
PROC: 0BH17EZ Insertion of Endotracheal Airway into Trachea, Via Natural or Artificial Opening (ICD-10-PCS; 2017-07-05)
PROC: 30233N1 Transfusion of Nonautologous Red Blood Cells into Peripheral Vein, Percutaneous Approach (ICD-10-PCS; 2017-07-05)
PROC: 05H533Z Insertion of Infusion Device into Right Subclavian Vein, Percutaneous Approach (ICD-10-PCS; 2017-07-05)
PROC: 0FT44ZZ Resection of Gallbladder, Percutaneous Endoscopic Approach (ICD-10-PCS; principal; 2017-07-05 13:32)
PROC: 0W993ZZ Drainage of Right Pleural Cavity, Percutaneous Approach (ICD-10-PCS; 2017-07-16)
DX: A41.89 Other specified sepsis (principal); J96.01 Acute respiratory failure with hypoxia; R65.21 Severe sepsis with septic shock; J15.0 Pneumonia due to Klebsiella pneumoniae; I50.33 Acute on chronic diastolic (congestive) heart failure; E44.0 Moderate protein-calorie malnutrition; K83.0 Cholangitis; K80.00 Calculus of gallbladder with acute cholecystitis without obstruction; K85.10 Biliary acute pancreatitis without necrosis or infection; D62 Acute posthemorrhagic anemia; I11.0 Hypertensive heart disease with heart failure; E78.5 Hyperlipidemia, unspecified; E66.01 Morbid (severe) obesity due to excess calories; E11.65 Type 2 diabetes mellitus with hyperglycemia; E11.40 Type 2 diabetes mellitus with diabetic neuropathy, unspecified; E87.6 Hypokalemia; Z98.84 Bariatric surgery status
CPT/HCPCS: 36415; 36600; 71045; 76604; 76705; 80048; 80053; 80061; 80202; 81001; 82140; 82150; 82805; 82962; 83036; 83605; 83615; 83690; 83735; 83880; 84132; 84484; 85014; 85018; 85025; 85048; 85610; 85730; 86704; 86706; 86708; 86803; 86850; 86900; 86901; 86920; 87040; 87045; 87070; 87077; 87081; 87186; 87205; 87340; 87493; 87899; 93005; 94002; 94003; 94640; 96361; 96365; 96367; 96375; 97163; A4565; C9113; G0378; J1450; J1815; J1956; J2250; J2405; J2543; J2704; J3480; J3490; J7060; P9047